=== PATIENT | female | born 1985 | race African-American/Black ===

== ENCOUNTER 2021-05-25 13:00 | Emergency (ER) | payer OTHER ==
[2021-05-25 13:23] VITALS: BP 106/71; PULSE 97; TEMP 97.7; BMI 26.3
[2021-05-25] MEDS ORDERED: KETOROLAC TROMETHAMINE 30 MG/1 ML VIAL IM ONE (14:47)
[2021-05-25] MEDS ORDERED: KETOROLAC TROMETHAMINE 30 MG/1 ML VIAL ONE (14:50)
== END 2021-05-25 15:00 | disposition home or self-care (01) ==
LOC: JERFT 13:00
PROC: 3E0233Z Introduction of Anti-inflammatory into Muscle, Percutaneous Approach (ICD-10-PCS; principal; 2021-05-25)
DX: R51.9 Headache, unspecified (principal)
CPT/HCPCS: 99284-25

== ENCOUNTER 2022-05-26 14:51 | Emergency (ER) | payer OTHER ==
[2022-05-26 15:10] VITALS: BP 137/64; PULSE 84; RESP 17; TEMP 98; BMI 25.6
== END 2022-05-26 18:01 | disposition home or self-care (01) ==
LOC: JERFT 14:51
DX: T76.21XA Adult sexual abuse, suspected, initial encounter (principal)
CPT/HCPCS: 99281-25

== ENCOUNTER 2023-04-13 17:07 | Emergency (ER) | payer SELFPAY ==
[2023-04-13 17:12] VITALS: BP 123/63; PULSE 80; RESP 18; TEMP 98; BMI 27.4
[2023-04-13] MEDS ORDERED: QUEtiapine FUMARATE 400 MG TABLET PO ONE (17:41)
[2023-04-13] MEDS ORDERED: QUEtiapine FUMARATE 100 MG TABLET (FP) ONE (17:45)
== END 2023-04-13 17:59 | disposition home or self-care (01) ==
LOC: JERFT 17:07
DX: Z76.0 Encounter for issue of repeat prescription (principal)
CPT/HCPCS: 99281-25

== ENCOUNTER 2023-05-08 01:54 | Emergency (ER) | payer SELFPAY ==
[2023-05-08 02:00] VITALS: BP 120/85; PULSE 74; RESP 15; TEMP 97.6; BMI 32.0
== END 2023-05-08 02:30 | disposition left against medical advice (07) ==
LOC: JER 01:54
DX: Z69.11 Encounter for mental health services for victim of spousal or partner abuse (principal); Z91.410 Personal history of adult physical and sexual abuse
CPT/HCPCS: 99281-25

== ENCOUNTER 2023-05-08 04:06 | Emergency (ER) | payer SELFPAY ==
[2023-05-08 04:18] VITALS: BP 134/86; PULSE 81; RESP 15; TEMP 97.6; BMI 32.0
== END 2023-05-08 05:56 | disposition left against medical advice (07) ==
LOC: JER 04:06
DX: Z86.59 Personal history of other mental and behavioral disorders (principal)
CPT/HCPCS: 99281-25